=== PATIENT | female | born 1965 | race African-American/Black ===

== ENCOUNTER 2018-08-23 14:11 | Inpatient (IN) ==
[2018-08-23] MEDS ORDERED: Sod Chloride 0.9% Inj 1,000 ML IV.SIG SCH ×2 (14:45→17:30)
--- NOTE | 2018-08-23 15:04 | ED ---
HPI General Chief Complaint: Abdominal Pain Stated Complaint: Abd Pain Complaint Time Seen by Provider: 08/23/18 14:36 Source: patient Mode of arrival: ambulatory Limitations: no limitations History of Present Illness HPI narrative: Patient is a 52-year-old female presenting to the emergency department for evaluation of abdominal pain. Patient states it started 2 months ago, she states for the last 2 days it got worse and she has not had a bowel movement in 2 weeks. She states she usually has a bowel movement every time she drinks milk. She denies any nausea, vomiting, fever, chills, dysuria. Patient reports that the pain feels like her muscles in her stomach are ripping open. Pain is constant, worse with palpation. She reports her pain is a 10 out of 10. MD complaint: Reports abdominal pain Onset (ago): day(s) (2) Pain Consistency: constant Location: Reports diffuse Severity: moderate Quality: Reports fullness Radiation: Reports none Migration to: Reports no migration Relieving factors: nothing Exacerbating factors: nothing Associated symptoms: Reports denies other symptoms Related Data Previous Rx's Medication Instructions Recorded ciprofloxacin HCl [Cipro] 500 mg PO Q12H #10 tab 08/23/18 Allergies Allergy/AdvReac Type Severity Reaction Status Date / Time No Known Allergies Allergy Verified 08/23/18 14:32 Review of Systems ROS: all other systems reviewed are negative [facility] Medical History Medical History Inguinal hernia (Acute) Patient denies medical problems (Acute) Surgical History Surgical History H/O tubal ligation (Acute) Social History Social History Substance History: No History of Abuse Second Hand Smoke Exposure: Yes Smoking Status: Current some day smoker Tobacco Type: Cigarettes How Often Do You Have a Drink Containing Alcohol: Never Recent Travel in [facility] within the Last 8 Weeks: No Recent Out of Country Travel within the Last 8 Weeks: No Immunization History Tetanus Immunization: Unsure Exam Narrative Exam Narrative: GENERAL: Thin, well-developed, alert -[place] female. Presenting in no acute distress. SKIN: Focused skin assessment warm/dry. HEAD: Atraumatic. Normocephalic. EYES: Pupils equal and round. No scleral icterus. No injection or drainage. ENT: No nasal bleeding or discharge. Mucous membranes pink and moist. NECK: Trachea midline. No JVD. CARDIOVASCULAR: Regular rate and rhythm. No murmur appreciated. RESPIRATORY: No accessory muscle use. Clear to auscultation. Breath sounds equal bilaterally. GASTROINTESTINAL: Abdomen firm, tender diffusely, nondistended. Hepatic and splenic margins not palpable. Positive bowel sounds. MUSCULOSKELETAL: No obvious deformities. No clubbing. No cyanosis. No edema. NEUROLOGICAL: Awake and alert. No obvious cranial nerve deficits. Motor grossly within normal limits. Normal speech. PSYCHIATRIC: Appropriate mood and affect; insight and judgment normal. Course Initial Documented Vital Signs Temperature 98.7 F 08/23/18 14:15 Pulse Rate 87 08/23/18 14:15 Respiratory Rate 16 08/23/18 14:15 Blood Pressure 132/77 08/23/18 14:15 Pulse Oximetry 100 08/23/18 14:15 Last Documented Vital Signs Temperature 98.7 F 08/23/18 14:15 Pulse Rate 87 08/23/18 14:15 Respiratory Rate 16 08/23/18 14:15 Blood Pressure 132/77 08/23/18 14:15 Pulse Oximetry 100 08/23/18 14:15 Medical Decision Making YAZMIN Attestation YAZMIN supervised visit: Yes Attestation: I, Dr. Rosado, have reviewed the advance practice practitioner's documentation and am in agreement, met with the patient face to face, made the diagnosis, and the medical decision making was done by me. *My assessment and Findings: Patient seen and evaluated with nurse practitioner , please see nurse practitioner notes for further details. Here because of abdominal pains, grossly tender to palpation in the abdomen. Abdomen however is nondistended, scaphoid, and patient has not no vomiting episodes in the ER. Lab work and CAT scan indicates underlying UTI with possible underlying pyelonephritis. No other acute intra-abdominal processes were identified. Planning to release with treatment for pyelonephritis and discomfort. Follow- up with primary care doctor. Return for worsening in symptoms as needed. MDM Narrative Medical decision making narrative: Patient presented for evaluation of abdominal pain. Labs and imaging ordered and pending. Patient's vital signs are stable, family is at bedside. UA consistent with a UTI. Ct of the abd/pelvis shows possible pyelonephritis on the right, as well as enteritis. Pt was started on cipro IV x 1. K+ 3.0 she was given KCL orally for replacement. CBC shows an anemia, pt states she has a history of this and eats ice. Pt is to be discharged home with follow up at the [facility]. She was encouraged to return to the ED for any new or worsening symptoms. Medical Screen Exam Complete: Yes Emergency Medical Condition: Yes Differential Diagnosis Differential Diagnosis: Constipation versus obstruction versus metabolic abnormality versus colitis versus other Medical Records Medical records reviewed: Yes I reviewed the patient's medical records. Lab Data Lab results reviewed: Yes I reviewed the patient's lab results. Result diagrams: 08/23/18 14:30 08/23/18 14:30 Lab Results 08/23/18 08/23/18 08/23/18 Range/Units 14:30 14:30 14:30 WBC 9.4 (4.0-11.0) th/mm3 RBC 3.52 L (4.00-5.30) mil/mm3 Hgb 9.1 L (11.6-15.3) gm/dL Hct 27.3 L (35.0-46.0) % MCV 77.5 L (80.0-100.0) fL MCH 25.7 L (27.0-34.0) pg MCHC 33.2 (32.0-36.0) % RDW 17.4 H (11.6-17.2) % Plt Count 368 (150-450) th/mm3 MPV 7.6 (7.0-11.0) fL Neut % (Auto) 76.3 H (16.0-70.0) % Lymph % (Auto) 12.6 (9.0-44.0) % [place] % (Auto) 10.7 H (0.0-8.0) % Eos % (Auto) 0.1 (0.0-4.0) % Baso % (Auto) 0.3 (0.0-2.0) % Neut # (Auto) 7.2 (1.8-7.7) th/mm3 Lymph # (Auto) 1.2 (1.0-4.8) th/mm3 [place] # (Auto) 1.0 H (0.0-0.9) th/mm3 Eos # (Auto) 0.0 (0.0-0.4) th/mm3 Baso # (Auto) 0.0 (0.0-0.2) th/mm3 WBC Differential . Differential Comment Auto diff final Sodium 137 (136-145) meq/L Potassium 3.0 L (3.5-5.1) meq/L Chloride 103 (98-107) meq/L Carbon Dioxide 25.7 (21.0-32.0) meq/L Anion Gap 8 (5-15) meq/L BUN 19 H (7-18) mg/dL Creatinine 0.86 (0.50-1.00) mg/dL Estimated GFR 84 L (>89) mL/min Random Glucose 78 (74-106) mg/dL Calcium 8.6 (8.5-10.1) mg/dL Magnesium 2.2 (1.5-2.5) mg/dL Total Bilirubin 0.4 (0.2-1.0) mg/dL AST 11 L (15-37) U/L ALT 12 (10-53) U/L Alkaline Phosphatase 82 (45-117) U/L Total Protein 8.2 (6.4-8.2) g/dL Albumin 3.4 (3.4-5.0) g/dL Lipase 50 L (73-393) U/L TSH 0.983 Cancelled (0.358-3.740) uIU/mL Free T4 1.27 Cancelled (0.76-1.46) ng/dL Urine Color (Yellw/Straw) Urine Clarity (Clear) Urine pH (5.0-8.5) Ur Specific [place] (1.002-1.035) Urine Protein (Neg-Trace) mg/dL Urine Glucose (UA) (Negative) mg/dL Urine Ketones (Negative) mg/dL Urine Occult Blood (Negative) Urine Nitrate (Negative) Urine Bilirubin (Negative) Urine Urobilinogen (Less than 2) mg/dL Ur Leukocyte Esterase (Negative) Urine RBC (0-3) /hpf Urine WBC (0-5) /hpf Urine WBC Clumps (None) Ur Squamous Epith Cells (0-5) /hpf Urine Bacteria (None) /hpf Urine Mucus (Occasional) /lpf Micro UA Comment Ur Microscopic Review Urine Culture Comments 08/23/18 Range/Units 14:30 WBC (4.0-11.0) th/mm3 RBC (4.00-5.30) mil/mm3 Hgb (11.6-15.3) gm/dL Hct (35.0-46.0) % MCV (80.0-100.0) fL MCH (27.0-34.0) pg MCHC (32.0-36.0) % RDW (11.6-17.2) % Plt Count (150-450) th/mm3 MPV (7.0-11.0) fL Neut % (Auto) (16.0-70.0) % Lymph % (Auto) (9.0-44.0) % [place] % (Auto) (0.0-8.0) % Eos % (Auto) (0.0-4.0) % Baso % (Auto) (0.0-2.0) % Neut # (Auto) (1.8-7.7) th/mm3 Lymph # (Auto) (1.0-4.8) th/mm3 [place] # (Auto) (0.0-0.9) th/mm3 Eos # (Auto) (0.0-0.4) th/mm3 Baso # (Auto) (0.0-0.2) th/mm3 WBC Differential Differential Comment Sodium (136-145) meq/L Potassium (3.5-5.1) meq/L Chloride (98-107) meq/L Carbon Dioxide (21.0-32.0) meq/L Anion Gap (5-15) meq/L BUN (7-18) mg/dL Creatinine (0.50-1.00) mg/dL Estimated GFR (>89) mL/min Random Glucose (74-106) mg/dL Calcium (8.5-10.1) mg/dL Magnesium (1.5-2.5) mg/dL Total Bilirubin (0.2-1.0) mg/dL AST (15-37) U/L ALT (10-53) U/L Alkaline Phosphatase (45-117) U/L Total Protein (6.4-8.2) g/dL Albumin (3.4-5.0) g/dL Lipase (73-393) U/L TSH (0.358-3.740) uIU/mL Free T4 (0.76-1.46) ng/dL Urine Color Yellow (Yellw/Straw) Urine Clarity Cloudy H (Clear) Urine pH 6.0 (5.0-8.5) Ur Specific [place] 1.016 (1.002-1.035) Urine Protein 30 H (Neg-Trace) mg/dL Urine Glucose (UA) Negative (Negative) mg/dL Urine Ketones 20 (Negative) mg/dL Urine Occult Blood Small H (Negative) Urine Nitrate Positive H (Negative) Urine Bilirubin Negative (Negative) Urine Urobilinogen 4 or greater (Less than 2) mg/dL Ur Leukocyte Esterase Moderate H (Negative) Urine RBC 3 (0-3) /hpf Urine WBC 67 H (0-5) /hpf Urine WBC Clumps Occasional H (None) Ur Squamous Epith Cells 1 (0-5) /hpf Urine Bacteria Many H (None) /hpf Urine Mucus Few H (Occasional) /lpf Micro UA Comment Culture indicated Ur Microscopic Review Not Reportable Urine Culture Comments Culture indicated Imaging Data Attestation: I personally reviewed and interpreted this imaging study as follows : Radiologist's impression: Abdomen/Pelvis CT 08/23/18 14:45 CONCLUSION: 1. Scattered areas of decreased perfusion of the right kidney suggesting possible acute pyelonephritis on the right. There is mild hydronephrosis on the right also. No definite obstructing calcified ureteral calculus is noted on the right. Mild perinephric streakiness is noted on the right. 2. Evidence of several loops of small bowel demonstrating wall thickening suggesting acute enteritis. Clinical correlation is recommended. 3. 7 mm left hepatic lobe cyst. 4. Tiny umbilical hernia. Discharge Plan Discharge Disposition Patient Disposition: 01 Discharge Home Discharge Condition Condition: Good Discharge Order Discharge Orders: Discharge Order (Routine); Ordered 08/23/18 Ordered By: Dominique Paz Discharge Details Diagnosis: Enteritis, Pyelonephritis, Anemia Physicians Team ED Provider: Shayy Rosado ED Midlevel Provider: Dominique Paz Primary Care Provider: Primary Care Oksana Mora Rxs /Orders / Referrals /Forms Prescriptions: New ciprofloxacin HCl [Cipro] 500 mg tablet 500 mg PO Q12H Qty: 10 RF: 0 Referrals: [facility] [Outside] - 3 Days Discharge Instructions Patient Printed Instructions: Gastroenteritis (ED), Kidney Infection (ED) Additional Instructions: Follow up for routine healthcare at the [facility] Complete antibiotics as directed Return to the ED for any new or worsening symtpoms Increase fluid intake Status ED Status: With Doctor
[2018-08-23 15:12] LABS: Baso % (Auto) 0.3 % (0.0-2.0); Eos % (Auto) 0.1 % (0.0-4.0); Hematocrit 27.3 % (35.0-46.0); Hemoglobin 9.1 gm/dL (11.6-15.3); Lymph # (Auto) 1.2 th/mm3 (1.0-4.8); Lymph % (Auto) 12.6 % (9.0-44.0); Mean Corpuscular HGB Conc 33.2 % (32.0-36.0); Mean Corpuscular Hemoglobin 25.7 pg (27.0-34.0); Mean Corpuscular Volume 77.5 fL (80.0-100.0); Mean Platelet Volume 7.6 fL (7.0-11.0); Mono % (Auto) 10.7 % (0.0-8.0); Neut # (Auto) 7.2 th/mm3 (1.8-7.7); Neut % (Auto) 76.3 % (16.0-70.0); Platelet Count 368 th/mm3 (150-450); Red Blood Count 3.52 mil/mm3 (4.00-5.30); Red Cell Distribution Width 17.4 % (11.6-17.2); White Blood Count 9.4 th/mm3 (4.0-11.0)
[2018-08-23 15:18] LABS: Bacteria,Urine Many /hpf; Bilirubin,Urine Negative (Negative); Clarity,Urine Cloudy (Clear); Color,Urine Yellow (Yellw/Straw); Glucose,Urine (UA) Negative (Negative); Leukocyte Esterase,Urine Moderate (Negative); Mucus,Urine Few /lpf (Occasional); Nitrite,Urine Positive (Negative); Specific Gravity,Urine 1.016 (1.002-1.035); Squamous Epithelial Cell,Urine 1 /hpf (0-5); Urobilinogen,Urine 4 or Greater mg/dL (Less than 2)
[2018-08-23 15:44] LABS: Alanine Aminotransferase 12 U/L (10-53); Albumin 3.4 g/dL (3.4-5.0); Anion Gap 8 meq/L (5-15); Aspartate Aminotransferase 11 U/L (15-37); Blood Urea Nitrogen 19 mg/dL (7-18); Calcium 8.6 mg/dL (8.5-10.1); Carbon Dioxide 25.7 meq/L (21.0-32.0); Chloride 103 meq/L (98-107); Glomerular Filtration Rate 84 mL/min (>89); Glucose,Random 78 mg/dL (74-106); Lipase 50 U/L (73-393); Magnesium 2.2 mg/dL (1.5-2.5); Sodium 137 meq/L (136-145)
[2018-08-23 15:53] LABS: Alkaline Phosphatase 82 U/L (45-117); Free T4 (Free Thyroxine) 1.27 ng/dL (0.76-1.46); Thyroid Stimulating Hormone 0.983 uIU/mL (0.358-3.740); Total Protein 8.2 g/dL (6.4-8.2)
--- NOTE | 2018-08-23 16:29 | CT ---
EXAM DATE: 08/23/2018 3:16 PM EDT AGE/SEX: 52 years / Female INDICATIONS: Left lower quadrant pain and constipation. CLINICAL DATA: This is the patient's initial encounter. Patient reports that signs and symptoms have been present for 2 weeks and indicates a pain score of 10/10. MEDICAL/SURGICAL HISTORY: . Inguinal hernia. Tubal ligation. ORAL CONTRAST: No oral contrast ingested. RADIATION DOSE: 6.64 CTDI (mGy) COMPARISON: None. TECHNIQUE: Multiple contiguous axial images were obtained through the abdomen and pelvis following b olus infusion of 80 ml Omnipaque 350 (iohexol) nonionic water-soluble contrast as a single exam dos e. No oral contrast ingested. Using automated exposure control and adjustment of the mA and/or kV ac cording to patient size, radiation dose was kept as low as reasonably achievable to obtain optimal di agnostic quality images. DICOM format image data is available electronically for review and comparis on. FINDINGS: Lower Lungs: The visualized lower lungs are clear. Liver: There is a 7 mm cyst within the left lobe of the liver medially. There is no dilation of the b iliary tree. Spleen: Homogeneous density without enlargement. Pancreas: Unremarkable without mass or calcification. Kidneys: There are scattered areas of decreased perfusion of the right kidney suggesting possible ac horace pyelonephritis on the right. There is mild hydronephrosis on the right also. No definite obstruct ing calcified ureteral calculus is noted on the right. Mild perinephric streakiness is noted on the r ight. The left kidney is unremarkable. Adrenal Glands: Unremarkable. Aorta: The aorta and proximal iliac vessels are grossly unremarkable without aneurysmal dilation. Bowel/Mesentery: There is evidence of several loops of small bowel demonstrating wall thickening sug gesting acute enteritis. Clinical correlation is recommended. Abdominal Wall: Tiny umbilical hernia is noted. Retroperitoneum: No evidence of adenopathy in the retrocrural, para-aortic, or deep pelvic regions. Bladder: Contours are smooth. Reproductive Organs: No abnormal masses or calcifications seen. Inguinal: The inguinal region is unremarkable without evidence of adenopathy. Bony Structures: Unremarkable. CONCLUSION: 1. Scattered areas of decreased perfusion of the right kidney suggesting possible acute pyelonephrit is on the right. There is mild hydronephrosis on the right also. No definite obstructing calcified ur eteral calculus is noted on the right. Mild perinephric streakiness is noted on the right. 2. Evidence of several loops of small bowel demonstrating wall thickening suggesting acute enteritis . Clinical correlation is recommended. 3. 7 mm left hepatic lobe cyst. 4. Tiny umbilical hernia. Electronically signed by: Matt Sandhu MD 08/23/2018 4:28 PM EDT
[2018-08-23] MEDS ORDERED: Ciprofloxacin 400 MG/200 ML 400 MG/200 ML PIGGYBACK IV.SIG ONE (16:39)
--- NOTE | 2018-08-23 19:17 | P.HPFP ---
Addendum entered and electronically signed by Marlen Yoo MD, R2 08/23/18 22 :59: ROS: Patient is post-menopausal. Denies vaginal discharge/bleeding, recent sexual activity, hx of STDs,dysuria. Denies vision changes. . Minimal SOB, denies increased thirst/hunger, numbness, tingling, or headache. Endorses fatigue, states she often feels cold. Denies cough, muscle weakness, and leg edema. Original Note: History of Present Illness Primary Care Physician: No Primary Care Physician Chief Complaint: abdominal pain, vomiting History of Present Illness: 52 y/o F w/hx of anemia presenting w/abdominal pain, constipation, and vomiting. States she has been having epigastric abdominal pain and vomiting for the last 2 days. Has been severe. Pain is 10/10, ripping pain when it occurs. Pain is constant and worse with palpation. Had been taking Aleve for the pain, which she states was helping at the beginning. Did not see a doctor for this problem. Pain was on her lower left side and radiated to the back. Pain feels spasmodic. Walking has been difficult and has not been able to sleep. Called [facility] tonight to come to hospital. Hasn't had a bowel movement in two weeks. Just had a bowel movement in the ED after potassium pills. No hard balls or incontinence. Abdominal pain feels better after bowel movement. CT done in the ED showed pyleonephritis, given cipro IV x1 and was ordered to follow up with PCP, given oral abx and about to get discharged. However, she soon developed tachycardia and a fever of 101.8 (t max) shortly before leaving. Started shaking uncontrollably, felt like she was freezing. Getting two boluses in the ED. Over the past 2 months, has had a change in appetite.Has lost weight down to 118 , usual weight has been 130. Has been having night sweats in the last two weeks. Hasn't been on bike in two weeks due to pain. Surg hx: hernia repair 1984 tubal ligation 1994 Fam hx: Mom: HTN Dad: age 80, colon cancer Social Hx: Smokes tobacco 4 years Smokes marijuana every once in a while Drinks every once in a while - Diagnosis (1) Sepsis (2) Pyelonephritis (3) Hypokalemia (4) Enteritis (5) Anemia (6) Constipation (7) Nutrition, metabolism, and development symptoms (8) DVT prophylaxis PMFSH - History History Provided By: Patient - Medical History Medical History: Medical History (Last Reviewed 08/23/18 @ 15:01 by SAJAN Bonner) Inguinal hernia Patient denies medical problems - Surgical History Surgical History: Surgical History (Last Reviewed 08/23/18 @ 15:01 by SAJAN Bonner) H/O tubal ligation - Tobacco History Second Hand Smoke Exposure: Yes Tobacco Use In Past 30 Days: Yes Smoking Status: Current some day smoker (Smokes one cigarrete q4days) Tobacco Type: Cigarettes - Alcohol History How Often Do You Have a Drink Containing Alcohol: Never - Substance Use History Substance History: No History of Abuse - Travel History Recent Travel in the [place] Within the Last 8 Weeks: No Recent Travel Out of the Country Within the Last 8 Weeks: No - Immunization History Tetanus Immunization: Unsure Medications and Allergies Active Medications: Active Medications Sodium Chloride (Ns Inj) 1,000 mls @ 0 mls/hr IV.SIG BOLUS ODETTE Last Infusion: 08/23/18 16:26 Dose: Infused Sodium Chloride (Ns Inj) 1,000 mls @ 0 mls/hr IV.SIG BOLUS ODETTE Last Infusion: 08/23/18 18:46 Dose: Infused Sodium Chloride (Ns Flush) 2 ml IV.FLUSH PRN PRN PRN Reason: FLUSH AFTER USING IV ACCESS Allergies Allergy/AdvReac Type Severity Reaction Status Date / Time No Known Allergies Allergy Verified 08/23/18 14:32 Exam Vital signs: Vital Signs 08/23/18 14:15 08/23/18 17:00 08/23/18 18:15 Temperature 98.7 F 100.8 F H 101.8 F H Pulse Rate 87 108 H 114 H Respiratory Rate 16 24 24 Blood Pressure 132/77 110/78 108/68 Pulse Oximetry 100 100 100 Intake & Output 08/23/18 08/23/18 08/24/18 06:59 18:59 06:59 Intake Total 2300 / 2300 Balance 2300 / 2300 Weight 49.895 kg Intake: IV 2300 / 2300 Ofirmev Inj 1,000 mg In 100 ml 100 / 100 @ 400 mls/hr IV.SIG ONCE ONE Rx #:[id number] Cipro 400 MG/200 ML Inj 400 mg 200 / 200 In 200 ml @ 200 mls/hr IV.SIG ONCE ONE Rx#:[id number] NS Inj 1,000 ML @ Wide Open IV. 1999 SIG BOLUS ODETTE Rx#:[id number] Narrative: GENERAL: This is a pleasant, thin, Black lady who laying in bed appearing uncomfortable. SKIN: Warm and dry. HEAD: Atraumatic. Normocephalic. EYES: Pupils equal and round. No scleral icterus. No injection or drainage. ENT: No nasal bleeding or discharge. Mucous membranes pink and moist. NECK: Trachea midline. CARDIOVASCULAR: Regular rate and rhythm. RESPIRATORY: No accessory muscle use. Clear to auscultation. GASTROINTESTINAL: Abdomen tender to palpation w/guarding. No organomegaly noted. MUSCULOSKELETAL: Extremities without clubbing, cyanosis, or edema. NEUROLOGICAL: Awake and alert. No obvious cranial nerve deficits. Motor grossly within normal limits. Normal speech. PSYCHIATRIC: Appropriate mood and affect; insight and judgment normal. Results - Labs Result diagrams: 08/23/18 14:30 08/23/18 14:30 Abnormal lab results 08/23/18 08/23/18 08/23/18 Range/Units 14:30 14:30 14:30 RBC 3.52 L (4.00-5.30) mil/mm3 Hgb 9.1 L (11.6-15.3) gm/dL Hct 27.3 L (35.0-46.0) % MCV 77.5 L (80.0-100.0) fL MCH 25.7 L (27.0-34.0) pg RDW 17.4 H (11.6-17.2) % Neut % (Auto) 76.3 H (16.0-70.0) % [place] % (Auto) 10.7 H (0.0-8.0) % [place] # (Auto) 1.0 H (0.0-0.9) th/mm3 Potassium 3.0 L (3.5-5.1) meq/L BUN 19 H (7-18) mg/dL Estimated GFR 84 L (>89) mL/min AST 11 L (15-37) U/L Lipase 50 L (73-393) U/L Urine Clarity Cloudy H (Clear) Urine Protein 30 H (Neg-Trace) mg/dL Urine Occult Blood Small H (Negative) Urine Nitrate Positive H (Negative) Ur Leukocyte Esterase Moderate H (Negative) Urine WBC 67 H (0-5) /hpf Urine WBC Clumps Occasional H (None) Urine Bacteria Many H (None) /hpf Urine Mucus Few H (Occasional) /lpf Short CBC 08/23/18 Range/Units 14:30 WBC 9.4 (4.0-11.0) th/mm3 Hgb 9.1 L (11.6-15.3) gm/dL Hct 27.3 L (35.0-46.0) % Plt Count 368 (150-450) th/mm3 BMP 08/23/18 14:30 Sodium 137 Potassium 3.0 L Chloride 103 Carbon Dioxide 25.7 BUN 19 H Creatinine 0.86 Calcium 8.6 Liver Function 08/23/18 Range/Units 14:30 Total Bilirubin 0.4 (0.2-1.0) mg/dL AST 11 L (15-37) U/L ALT 12 (10-53) U/L Alkaline Phosphatase 82 (45-117) U/L Albumin 3.4 (3.4-5.0) g/dL Urine 08/23/18 Range/Units 14:30 Urine Color Yellow (Yellw/Straw) Urine Clarity Cloudy H (Clear) Urine pH 6.0 (5.0-8.5) Ur Specific Bryan 1.016 (1.002-1.035) Urine Protein 30 H (Neg-Trace) mg/dL Urine Glucose (UA) Negative (Negative) mg/dL - Imaging Impressions Abdomen/Pelvis CT 08/23/18 14:45 CONCLUSION: 1. Scattered areas of decreased perfusion of the right kidney suggesting possible acute pyelonephritis on the right. There is mild hydronephrosis on the right also. No definite obstructing calcified ureteral calculus is noted on the right. Mild perinephric streakiness is noted on the right. 2. Evidence of several loops of small bowel demonstrating wall thickening suggesting acute enteritis. Clinical correlation is recommended. 3. 7 mm left hepatic lobe cyst. 4. Tiny umbilical hernia. Caprini VTE Risk Assessment Caprini VTE Risk Assessment: No/Low Risk (score <= 1) Caprini Risk Assessment Model: Point Value = 1 Point Value = 2 Point Value = 3 Point Value = 5 Age 41-60 Minor surgery BMI > 25 kg/m2 Swollen legs Varicose veins or History of unexplained or recurrent spontaneous Oral contraceptives or hormone replacement Sepsis (< 1 month) Serious lung disease, including pneumonia (< 1 month) Abnormal pulmonary function Acute myocardial infarction Congestive heart failure (< 1 month) History of inflammatory bowel disease Medical patient at bed rest Age 61-74 Arthroscopic surgery Major open surgery (> 45 min) Laparoscopic surgery (> 45 min) Malignancy Confined to bed (> 72 hours) Immobilizing plaster cast Central venous access Age >= 75 History of VTE Family history of VTE Factor V Leiden Prothrombin [id number] Lupus anticoagulant Anticardiolipin antibodies Elevated serum homocysteine Heparin-induced thrombocytopenia Other congenital or acquired thrombophilia Stroke (< 1 month) Elective arthroplasty Hip, pelvis, or leg fracture Acute spinal cord injury (< 1 month) Prophylaxis Regimen: Total Risk Factor Score Risk Level Prophylaxis Regimen 0-1 Low Early ambulation 2 Moderate Order ONE of the following: *Sequential Compression Device (SCD) *Heparin 5000 units SQ BID 3-4 Higher Order ONE of the following medications: *Heparin 5000 units SQ TID *Enoxaparin/Lovenox 40 mg SQ daily (WT < 150 kg, CrCl > 30 mL/min) *Enoxaparin/Lovenox 30 mg SQ daily (WT < 150 kg, CrCl > 10-29 mL/min) *Enoxaparin/Lovenox 30 mg SQ BID (WT < 150 kg, CrCl > 30 mL/min) AND/OR *Sequential Compression Device (SCD) 5 or more Highest Order ONE of the following medications: *Heparin 5000 units SQ TID (Preferred with Epidurals) *Enoxaparin/Lovenox 40 mg SQ daily (WT < 150 kg, CrCl > 30 mL/min) *Enoxaparin/Lovenox 30 mg SQ daily (WT < 150 kg, CrCl > 10-29 mL/min) *Enoxaparin/Lovenox 30 mg SQ BID (WT < 150 kg, CrCl > 30 mL/min) AND *Sequential Compression Device (SCD) Assessment and Plan - Assessment (1) Sepsis Code(s): A41.9 - Sepsis, unspecified organism Status: Acute Plan: 2/2 to pyelonephritis as suggested per clinical exam, CT, and U/A No end organ damage noted per labs S/p NS 1L bolus x2 and cipro 400 mg x1 Start IVF @ maintenance No risk factors for infection with MDR resistant organisms noted at this time. Start Rocephin 1g daily Lactic acid-sepsis protocol Ibuprofen PRN for fever of >100.4 Blood cx x1 ordered Urine cx pending (2) Pyelonephritis Code(s): N12 - Tubulo-interstitial nephritis, not specified as acute or chronic Status: Acute Plan: See plan above (3) Hypokalemia Code(s): E87.6 - Hypokalemia Status: Acute Plan: K+ 3.0 on admission. Supplemented x1. F/u CMP (4) Enteritis Code(s): K52.9 - Noninfective gastroenteritis and colitis, unspecified Status : Acute Plan: Diff: cancer v sepsis v bacterial Eval for improvement in the AM Peripheral blood smear ordered (5) Anemia Code(s): D64.9 - Anemia, unspecified Status: Acute Plan: Microcytic Diff: iron deficiency v thalassemia CBC daily Check iron panel, consider supplementation (6) Constipation Code(s): K59.00 - Constipation, unspecified Status: Acute Plan: Bedside hemoccult deferred due to significant discomfort and abdominal pain. - Hemoccult of the stool ordered - Stool softeners scheduled - Laxatives PRN - Has had BM x1 in the ED. Consider administration of PEG if the above do not work (7) Nutrition, metabolism, and development symptoms Code(s): R63.8 - Other symptoms and signs concerning food and fluid intake Status: Acute Plan: Fluids: maintenance Electrolytes: as needed, check BMP daily Nutrition: Regular diet (8) DVT prophylaxis Status: Acute Plan: Encourage ambulation - Assessment and Plan Discussed w/ED physician (1) Sepsis Qualifiers: Sepsis type: sepsis due to unspecified organism Qualified Code(s): A41.9 - Sepsis, unspecified organism (5) Anemia Qualifiers: Anemia type: unspecified type Qualified Code(s): D64.9 - Anemia, unspecified
[2018-08-23] MEDS ORDERED: Bisacodyl 10 MG Supp RECTAL PRN (19:46)
[2018-08-23] MEDS ORDERED: Vancomycin Consult Pharmacy OTHER PRN (19:54)
[2018-08-23] MEDS ORDERED: Naloxone Inj 0.4 MG/ML Vial IV.PUSH PRN (19:59)
[2018-08-23 20:07] LABS: Amphetamine Screen,Urine Neg (Neg); Barbiturate Screen,Urine Neg (Neg); Cannabinoid Screen,Urine Pos (Neg); Cocaine Screen,Urine Pos (Neg)
[2018-08-23 20:13] LABS: Opiate Screen,Urine Neg (Neg)
[2018-08-23] MEDS ORDERED: Vancomycin Inj 750 MG in Sodium Chlor 0.9% Inj 250 ML IV.SIG SCH (21:00)
[2018-08-23] MEDS: Senna/Docusate Sodium 8.6/50 MG Tablet PO SCH (21:14)
[2018-08-23] MEDS ORDERED: Ibuprofen 400 MG Tablet PO PRN (21:23)
[2018-08-23] MEDS: Sod Chloride 0.9% Inj 1,000 ML IV.CONT SCH (22:38)
[2018-08-24 09:11] LABS: Baso % (Auto) 0.4 % (0.0-2.0); Eos # (Auto) 0.1 th/mm3 (0.0-0.4); Eos % (Auto) 0.7 % (0.0-4.0); Hematocrit 23.2 % (35.0-46.0); Hemoglobin 7.8 gm/dL (11.6-15.3); Lymph # (Auto) 1.7 th/mm3 (1.0-4.8); Lymph % (Auto) 21.3 % (9.0-44.0); Mean Corpuscular HGB Conc 33.8 % (32.0-36.0); Mean Corpuscular Hemoglobin 26.4 pg (27.0-34.0); Mean Corpuscular Volume 78.1 fL (80.0-100.0); Mean Platelet Volume 7.7 fL (7.0-11.0); Mono # (Auto) 0.7 th/mm3 (0.0-0.9); Mono % (Auto) 8.8 % (0.0-8.0); Neut # (Auto) 5.5 th/mm3 (1.8-7.7); Neut % (Auto) 68.8 % (16.0-70.0); Platelet Count 312 th/mm3 (150-450); Red Blood Count 2.96 mil/mm3 (4.00-5.30); Red Cell Distribution Width 17.4 % (11.6-17.2); White Blood Count 8.1 th/mm3 (4.0-11.0)
[2018-08-24] MEDS: Senna/Docusate Sodium 8.6/50 MG Tablet PO SCH ×2 (09:30→20:20)
[2018-08-24 09:44] LABS: % Iron Saturation 3.9 % (20-50); Carbon Dioxide 22.7 meq/L (21.0-32.0); Potassium 3.4 meq/L (3.5-5.1)
--- NOTE | 2018-08-24 10:46 | P.HPFP ---
History of Present Illness Primary Care Physician: No Primary Care Physician Chief Complaint: abdominal pain, vomiting History of Present Illness: Patient seen with medical support assistant team during rounds this morning. She states that she feels much better this morning and that she was able to eat breakfast without issue. She continues to have some epigastric abdominal pain as well as some right sided flank pain, however this has improved significantly since admission. She feels that she is still constipated, however denies pain from this. Further discussion with patient shows that she has been taking Aleve several times a day for at least the last month and a half for this abdominal pain. This morning, she denies fevers but endorses sweating profusely overnight which is common for her, she denies nausea or vomiting, she denies chest pain or palpitations. In summary, this is a 52-year-old female presenting to the emergency department with abdominal pain and vomiting. The abdominal pain has been going on for approximately the last 2 months, however over the last 2 days became significantly worse associated with vomiting and so she came into the emergency department. She has been taking Aleve for this abdominal pain which was helping originally, however she gets no relief from her Aleve at this time. She denies any hematemesis, she denies any melena or hematochezia, she denies any chest pain. In the emergency department, CT scan was done showing pyelonephritis for which she was started on ciprofloxacin. She became febrile and had continued abdominal pain, so she was admitted for further treatment. - Diagnosis (1) Sepsis (2) Pyelonephritis (3) Hypokalemia (4) Enteritis (5) Anemia (6) Constipation (7) Substance abuse (8) Nutrition, metabolism, and development symptoms (9) DVT prophylaxis Inpatient Certification: I certify that the inpatient services were ordered in accordance with Medicare regulations governing the order. This includes certification that hospital inpatient services are reasonable and necessary and in the case of services not specified as inpatient-only under 42 CFR 419.22(n), that they are appropriately provided as inpatient services in accordance to with the 2-midnight benchmark under 43 CFR 412.3(e) Estimated Total Length of Stay (Days): 3 Plans for Post Hospital Care: Home [facility] - History History Provided By: Patient - Medical History Medical History: Medical History (Last Reviewed 08/23/18 @ 15:01 by SAJAN Bonner) Inguinal hernia Patient denies medical problems - Surgical History Surgical History: Surgical History (Last Reviewed 08/23/18 @ 15:01 by SAJAN Bonner) H/O tubal ligation - Tobacco History Second Hand Smoke Exposure: Yes Tobacco Use In Past 30 Days: Yes Smoking Status: Current every day smoker Tobacco Type: Cigarettes - Alcohol History How Often Do You Have a Drink Containing Alcohol: Monthly or less - Substance Use History Substance History: Active Abuse - Substance Use Type Crack/Cocaine Status: Active Marijuana Status: Active - Travel History Recent Travel in the [place] Within the Last 8 Weeks: No Recent Travel Out of the Country Within the Last 8 Weeks: No - Immunization History Tetanus Immunization: Unsure Hx Influenza Vaccine This Season: No Medications and Allergies Active Medications: Active Medications Al Hydroxide/Mg Hydroxide (Milk Of Magnesia Liq) 30 ml PO Q12H PRN PRN Reason: Mild Constipation Bisacodyl (Dulcolax Supp) 10 mg RECTAL DAILY PRN PRN Reason: SEVERE CONSITIPATION Acetaminophen (Ofirmev Inj) 1,000 mg in 100 mls @ 400 mls/hr IV.SIG Q6H [facility] Stop: 08/24/18 14:14 Last Admin: 08/24/18 09:30 Dose: 100 mls/hr Ceftriaxone Sodium 1,000 mg/ (Sodium Chloride) 100 mls @ 200 mls/hr IV.SIG Q24H [facility] Last Infusion: 08/23/18 22:03 Dose: Infused Ibuprofen (Motrin) 400 mg PO Q6H PRN PRN Reason: FEVER > 100.4 F Lactulose (Lactulose Liq) 30 ml PO DAILY PRN PRN Reason: SEVERE CONSITIPATION Naloxone HCl (Narcan Inj) 0.4 mg IV.PUSH UNSCH PRN PRN Reason: SEE LABEL COMMENTS Ondansetron HCl (Zofran Inj) 4 mg IV.PUSH Q6H PRN PRN Reason: NAUSEA OR VOMITING Pantoprazole Sodium (Protonix) 40 mg PO DAILY [facility] Polyethylene Glycol (Miralax) 17 gm PO ONCE ONE Stop: 08/24/18 11:01 Senna/Docusate Sodium (Huong-Colace) 1 tab PO BID [facility] Last Admin: 08/24/18 09:30 Dose: 1 tab Sennosides (Senokot) 17.2 mg PO Q12H PRN PRN Reason: Moderate Constipation Sodium Chloride (Ns Flush) 2 ml IV.FLUSH PRN PRN PRN Reason: FLUSH AFTER USING IV ACCESS Allergies Allergy/AdvReac Type Severity Reaction Status Date / Time No Known Allergies Allergy Verified 08/23/18 14:32 Exam Vital signs: Vital Signs 08/23/18 14:15 08/23/18 17:00 08/23/18 18:15 Temperature 98.7 F 100.8 F H 101.8 F H Pulse Rate 87 108 H 114 H Respiratory Rate 16 24 24 Blood Pressure 132/77 110/78 108/68 Pulse Oximetry 100 100 100 08/23/18 20:25 08/24/18 00:00 08/24/18 08:00 Temperature 99.6 F 98.3 F 98.3 F Pulse Rate 102 H 95 H 84 Respiratory Rate 20 18 17 Blood Pressure 124/86 108/59 L 116/70 Pulse Oximetry 100 100 99 Intake & Output 08/23/18 08/24/18 08/24/18 18:59 06:59 18:59 Intake Total 2300 / 2300 780 / 780 Balance 2300 / 2300 780 / 780 Weight 49.895 kg 43.3 kg Intake: IV 2300 / 2300 300 / 300 Ofirmev Inj 1,000 mg In 100 ml 100 / 100 200 / 200 @ 400 mls/hr IV.SIG Q6H [facility] Rx# :[id number] Cipro 400 MG/200 ML Inj 400 mg 200 / 200 In 200 ml @ 200 mls/hr IV.SIG ONCE ONE Rx#:[id number] NS Inj 1,000 ML @ Wide Open IV. 1999 SIG BOLUS ODETTE Rx#:[id number] Rocephin Inj 1,000 MG In NS Inj 100 / 100 100 ML @ 200 mls/hr IV.SIG Q24H [facility] Rx#:[id number] Oral 480 / 480 Other: # Voids 2 Weight On Admission 43.3 kg Narrative: CONSTITUTIONAL/GEN: Thin, -[place]ov[place] female lying in bed in no obvious distress. LUNGS: clear A-P, respiratory effort is normal. CARDIOVASCULAR: RR without murmur or gallop. No significant edema. GI/ABD: Diffusely tender to palpation with moderate guarding in the epigastric region. Positive bowel sounds : Positive for right-sided CVA tenderness SKIN: color normal, no rashes noted. MUSC: Extremities are normal in appearance without clubbing, cyanosis, or edema PSYCH/MENTAL STATUS: Alert and oriented x 3. Results - Labs Result diagrams: 08/24/18 07:18 08/24/18 07:13 Abnormal lab results 08/23/18 08/23/18 08/23/18 Range/Units 14:30 14:30 14:30 RBC 3.52 L (4.00-5.30) mil/mm3 Hgb 9.1 L (11.6-15.3) gm/dL Hct 27.3 L (35.0-46.0) % MCV 77.5 L (80.0-100.0) fL MCH 25.7 L (27.0-34.0) pg RDW 17.4 H (11.6-17.2) % Neut % (Auto) 76.3 H (16.0-70.0) % Kaufman % (Auto) 10.7 H (0.0-8.0) % [place]aufman # (Auto) 1.0 H (0.0-0.9) th/mm3 Potassium 3.0 L (3.5-5.1) meq/L Chloride (98-107) meq/L BUN 19 H (7-18) mg/dL Estimated GFR 84 L (>89) mL/min Random Glucose (74-106) mg/dL Calcium (8.5-10.1) mg/dL Iron (50-170) mcg/dL % Saturation (20-50) % AST 11 L (15-37) U/L Lipase 50 L (73-393) U/L Urine Clarity Cloudy H (Clear) Urine Protein 30 H (Neg-Trace) mg/dL Urine Occult Blood Small H (Negative) Urine Nitrate Positive H (Negative) Ur Leukocyte Esterase Moderate H (Negative) Urine WBC 67 H (0-5) /hpf Urine WBC Clumps Occasional H (None) Urine Bacteria Many H (None) /hpf Urine Mucus Few H (Occasional) /lpf Urine Cocaine Screen (Neg) U Cannabinoids Screen (Neg) 08/23/18 08/24/18 08/24/18 Range/Units 14:30 07:13 07:18 RBC 2.96 L (4.00-5.30) mil/mm3 Hgb 7.8 L (11.6-15.3) gm/dL Hct 23.2 L (35.0-46.0) % MCV 78.1 L (80.0-100.0) fL MCH 26.4 L (27.0-34.0) pg RDW 17.4 H (11.6-17.2) % Neut % (Auto) (16.0-70.0) % Kaufman % (Auto) 8.8 H (0.0-8.0) % [place]aufman # (Auto) (0.0-0.9) th/mm3 Potassium 3.4 L (3.5-5.1) meq/L Chloride 113 H D (98-107) meq/L BUN (7-18) mg/dL Estimated GFR 87 L (>89) mL/min Random Glucose 110 H (74-106) mg/dL Calcium 8.0 L (8.5-10.1) mg/dL Iron 10 L (50-170) mcg/dL % Saturation 3.9 L (20-50) % AST (15-37) U/L Lipase (73-393) U/L Urine Clarity (Clear) Urine Protein (Neg-Trace) mg/dL Urine Occult Blood (Negative) Urine Nitrate (Negative) Ur Leukocyte Esterase (Negative) Urine WBC (0-5) /hpf Urine WBC Clumps (None) Urine Bacteria (None) /hpf Urine Mucus (Occasional) /lpf Urine Cocaine Screen Pos H (Neg) U Cannabinoids Screen Pos H (Neg) Short CBC 08/23/18 08/24/18 Range/Units 14:30 07:18 WBC 9.4 8.1 (4.0-11.0) th/mm3 Hgb 9.1 L 7.8 L (11.6-15.3) gm/dL Hct 27.3 L 23.2 L (35.0-46.0) % Plt Count 368 312 (150-450) th/mm3 BMP 08/23/18 08/24/18 14:30 07:13 Sodium 137 143 Potassium 3.0 L 3.4 L Chloride 103 113 H D Carbon Dioxide 25.7 22.7 BUN 19 H 9 Creatinine 0.86 0.83 Calcium 8.6 8.0 L Liver Function 08/23/18 Range/Units 14:30 Total Bilirubin 0.4 (0.2-1.0) mg/dL AST 11 L (15-37) U/L ALT 12 (10-53) U/L Alkaline Phosphatase 82 (45-117) U/L Albumin 3.4 (3.4-5.0) g/dL Urine 08/23/18 Range/Units 14:30 Urine Color Yellow (Yellw/Straw) Urine Clarity Cloudy H (Clear) Urine pH 6.0 (5.0-8.5) Ur Specific [place] 1.016 (1.002-1.035) Urine Protein 30 H (Neg-Trace) mg/dL Urine Glucose (UA) Negative (Negative) mg/dL - Imaging Impressions Abdomen/Pelvis CT 08/23/18 14:45 CONCLUSION: 1. Scattered areas of decreased perfusion of the right kidney suggesting possible acute pyelonephritis on the right. There is mild hydronephrosis on the right also. No definite obstructing calcified ureteral calculus is noted on the right. Mild perinephric streakiness is noted on the right. 2. Evidence of several loops of small bowel demonstrating wall thickening suggesting acute enteritis. Clinical correlation is recommended. 3. 7 mm left hepatic lobe cyst. 4. Tiny umbilical hernia. Caprini VTE Risk Assessment Caprini VTE Risk Assessment: No/Low Risk (score <= 1) Caprini Risk Assessment Model: Point Value = 1 Point Value = 2 Point Value = 3 Point Value = 5 Age 41-60 Minor surgery BMI > 25 kg/m2 Swollen legs Varicose veins or History of unexplained or recurrent spontaneous Oral contraceptives or hormone replacement Sepsis (< 1 month) Serious lung disease, including pneumonia (< 1 month) Abnormal pulmonary function Acute myocardial infarction Congestive heart failure (< 1 month) History of inflammatory bowel disease Medical patient at bed rest Age 61-74 Arthroscopic surgery Major open surgery (> 45 min) Laparoscopic surgery (> 45 min) Malignancy Confined to bed (> 72 hours) Immobilizing plaster cast Central venous access Age >= 75 History of VTE Family history of VTE Factor V Leiden Prothrombin [id number] Lupus anticoagulant Anticardiolipin antibodies Elevated serum homocysteine Heparin-induced thrombocytopenia Other congenital or acquired thrombophilia Stroke (< 1 month) Elective arthroplasty Hip, pelvis, or leg fracture Acute spinal cord injury (< 1 month) Prophylaxis Regimen: Total Risk Factor Score Risk Level Prophylaxis Regimen 0-1 Low Early ambulation 2 Moderate Order ONE of the following: *Sequential Compression Device (SCD) *Heparin 5000 units SQ BID 3-4 Higher Order ONE of the following medications: *Heparin 5000 units SQ TID *Enoxaparin/Lovenox 40 mg SQ daily (WT < 150 kg, CrCl > 30 mL/min) *Enoxaparin/Lovenox 30 mg SQ daily (WT < 150 kg, CrCl > 10-29 mL/min) *Enoxaparin/Lovenox 30 mg SQ BID (WT < 150 kg, CrCl > 30 mL/min) AND/OR *Sequential Compression Device (SCD) 5 or more Highest Order ONE of the following medications: *Heparin 5000 units SQ TID (Preferred with Epidurals) *Enoxaparin/Lovenox 40 mg SQ daily (WT < 150 kg, CrCl > 30 mL/min) *Enoxaparin/Lovenox 30 mg SQ daily (WT < 150 kg, CrCl > 10-29 mL/min) *Enoxaparin/Lovenox 30 mg SQ BID (WT < 150 kg, CrCl > 30 mL/min) AND *Sequential Compression Device (SCD) Assessment and Plan - Assessment (1) Sepsis Code(s): A41.9 - Sepsis, unspecified organism Status: Acute Plan: Patient meets sepsis criteria with tachycardia, febrile, and source of infection with pyelonephritis IV antibiotics: Rocephin 1 g IV every 24 hours -Received ciprofloxacin 400 mg IV x1 in the emergency department Urine culture pending Blood culture pending Lactic acid within normal limits at 1.1 (2) Pyelonephritis Code(s): N12 - Tubulo-interstitial nephritis, not specified as acute or chronic Status: Acute Plan: See plan above (3) Hypokalemia Code(s): E87.6 - Hypokalemia Status: Acute Plan: K+ 3.0 on admission. Supplemented x1. F/u CMP (4) Enteritis Code(s): K52.9 - Noninfective gastroenteritis and colitis, unspecified Status : Acute Plan: Enteritis seen on CT scan Likely due to viral gastroenteritis versus heavy NSAID use Avoid NSAIDs at this time (5) Anemia Code(s): D64.9 - Anemia, unspecified Status: Acute Plan: Hemoglobin 9.1 on arrival, decreased to 7.8 today Monitor with daily labs and transfuse as needed for hemoglobin less than 7 Iron studies ordered and pending (6) Constipation Code(s): K59.00 - Constipation, unspecified Status: Acute Plan: Bedside hemoccult deferred due to significant discomfort and abdominal pain. - Hemoccult of the stool ordered - Stool softeners scheduled - Laxatives PRN (7) Substance abuse Code(s): F19.10 - Other psychoactive substance abuse, uncomplicated Status: Acute Plan: Tox screen positive for cocaine and cannabinoids Recommend cessation (8) Nutrition, metabolism, and development symptoms Code(s): R63.8 - Other symptoms and signs concerning food and fluid intake Status: Acute Plan: Fluids: maintenance Electrolytes: as needed, check BMP daily Nutrition: Regular diet (9) DVT prophylaxis Status: Acute Plan: Encourage ambulation H&P: Quality - VTE Deep Vein Thrombosis/Pulmonary Embolism Present on Admission: No (1) Sepsis Qualifiers: Sepsis type: sepsis due to unspecified organism Qualified Code(s): A41.9 - Sepsis, unspecified organism (5) Anemia Qualifiers: Anemia type: unspecified type Qualified Code(s): D64.9 - Anemia, unspecified
[2018-08-24] MEDS ORDERED: Polyethylene Glycol 3350 17 GM Packet PO ONE (11:00)
[2018-08-24] MEDS: Sod Chloride 0.9% Inj 1,000 ML IV.CONT SCH (18:57)
--- NOTE | 2018-08-24 22:19 | ECG ---
Date Performed: 08/23/2018 Time Performed: 20:14:16 PTAGE: 52 years EKG: SINUS TACHYCARDIA ABNORMAL RHYTHM ECG PREVIOUS TRACING : 04/19/1994 19.33 Since the previous tracing, no significant change noted DOCTOR: Roderick Swain Interpretating Date/Time 08/24/2018 22:18:33
[2018-08-25 06:00] LABS: Baso % (Auto) 0.4 % (0.0-2.0); Eos # (Auto) 0.1 th/mm3 (0.0-0.4); Eos % (Auto) 1.6 % (0.0-4.0); Hematocrit 26.7 % (35.0-46.0); Hemoglobin 8.5 gm/dL (11.6-15.3); Lymph # (Auto) 1.6 th/mm3 (1.0-4.8); Lymph % (Auto) 29.1 % (9.0-44.0); Mean Corpuscular HGB Conc 31.8 % (32.0-36.0); Mean Corpuscular Volume 78.8 fL (80.0-100.0); Mean Platelet Volume 7.4 fL (7.0-11.0); Mono # (Auto) 0.4 th/mm3 (0.0-0.9); Mono % (Auto) 7.3 % (0.0-8.0); Neut # (Auto) 3.5 th/mm3 (1.8-7.7); Neut % (Auto) 61.6 % (16.0-70.0); Platelet Count 333 th/mm3 (150-450); Red Blood Count 3.39 mil/mm3 (4.00-5.30); Red Cell Distribution Width 17.3 % (11.6-17.2); White Blood Count 5.6 th/mm3 (4.0-11.0)
[2018-08-25 06:11] LABS: Anion Gap 8 meq/L (5-15); Blood Urea Nitrogen 8 mg/dL (7-18); Calcium 8.5 mg/dL (8.5-10.1); Carbon Dioxide 22.5 meq/L (21.0-32.0); Chloride 110 meq/L (98-107); Glomerular Filtration Rate Greater Than 89 mL/min (>89); Glucose,Random 84 mg/dL (74-106); Potassium 3.6 meq/L (3.5-5.1); Sodium 140 meq/L (136-145)
[2018-08-25] MEDS ORDERED: PEG 3350/E-Lyte Soln 4000 ML Bottle PO ONE (09:00)
[2018-08-25] MEDS: Senna/Docusate Sodium 8.6/50 MG Tablet PO SCH ×2 (09:46→20:03)
--- NOTE | 2018-08-25 11:05 | P.PNFP ---
Subjective Interval history: Vitals stable overnight. Improvement in pain today more than yesterday. Had a bowel movement this morning, but states that it took 15 minutes and was hard in texture. No problems with appetite or ambulation, denies fever/chills, chest pain/SOB, nausea. <Marlen Yoo - 08/25/18 11:05> Results - Labs Result diagrams: 08/25/18 05:30 08/25/18 05:30 <Abhay Rey - 08/25/18 22:10> Abnormal lab results 08/25/18 08/25/18 Range/Units 05:30 05:30 RBC 3.39 L (4.00-5.30) mil/mm3 Hgb 8.5 L (11.6-15.3) gm/dL Hct 26.7 L (35.0-46.0) % MCV 78.8 L (80.0-100.0) fL MCH 25.0 L (27.0-34.0) pg MCHC 31.8 L (32.0-36.0) % RDW 17.3 H (11.6-17.2) % Chloride 110 H (98-107) meq/L Short CBC 08/25/18 Range/Units 05:30 WBC 5.6 (4.0-11.0) th/mm3 Hgb 8.5 L (11.6-15.3) gm/dL Hct 26.7 L (35.0-46.0) % Plt Count 333 (150-450) th/mm3 BMP 08/25/18 05:30 Sodium 140 Potassium 3.6 Chloride 110 H Carbon Dioxide 22.5 BUN 8 Creatinine 0.67 Calcium 8.5 <Abhay Rey - 08/25/18 22:10> Abnormal lab results 08/23/18 08/25/18 08/25/18 Range/Units 14:30 05:30 05:30 RBC 3.39 L (4.00-5.30) mil/mm3 Hgb 8.5 L (11.6-15.3) gm/dL Hct 26.7 L (35.0-46.0) % MCV 78.8 L (80.0-100.0) fL MCH 25.0 L (27.0-34.0) pg MCHC 31.8 L (32.0-36.0) % RDW 17.3 H (11.6-17.2) % Chloride 110 H (98-107) meq/L Urine Clarity Cloudy H (Clear) Urine Protein 30 H (Neg-Trace) mg/dL Urine Occult Blood Small H (Negative) Urine Nitrate Positive H (Negative) Ur Leukocyte Esterase Moderate H (Negative) Urine WBC 67 H (0-5) /hpf Urine WBC Clumps Occasional H (None) Urine Bacteria Many H (None) /hpf Urine Mucus Few H (Occasional) /lpf Short CBC 08/25/18 Range/Units 05:30 WBC 5.6 (4.0-11.0) th/mm3 Hgb 8.5 L (11.6-15.3) gm/dL Hct 26.7 L (35.0-46.0) % Plt Count 333 (150-450) th/mm3 BMP 08/25/18 05:30 Sodium 140 Potassium 3.6 Chloride 110 H Carbon Dioxide 22.5 BUN 8 Creatinine 0.67 Calcium 8.5 Urine 08/23/18 Range/Units 14:30 Urine Color Yellow (Yellw/Straw) Urine Clarity Cloudy H (Clear) Urine pH 6.0 (5.0-8.5) Ur Specific [place] 1.016 (1.002-1.035) Urine Protein 30 H (Neg-Trace) mg/dL Urine Glucose (UA) Negative (Negative) mg/dL <Marlen Yoo N - 08/25/18 11:05> Physical Exam Vital signs: Vital Signs 08/25/18 00:00 08/25/18 08:00 08/25/18 12:00 Temperature 98.4 F 97.7 F 97.9 F Pulse Rate 79 76 64 Respiratory Rate 16 20 16 Blood Pressure 128/62 123/75 132/83 Pulse Oximetry 100 100 99 08/25/18 16:00 08/25/18 20:00 Temperature 98.4 F 98.3 F Pulse Rate 75 22 L Respiratory Rate 17 17 Blood Pressure 119/79 138/75 Pulse Oximetry 100 96 Intake & Output 08/25/18 08/25/18 08/26/18 06:59 18:59 06:59 Intake Total 580 / 580 942 / 942 Balance 580 / 580 942 / 942 Weight 43.3 kg Intake: IV 100 / 100 Rocephin Inj 1,000 MG In NS Inj 100 / 100 100 ML @ 200 mls/hr IV.SIG Q24H [facility] Rx#:[id number] Oral 480 / 480 942 / 942 Other: # Voids 3 8 Date of Last Bowel Movement 08/25/18 08/25/18 # Bowel Movements 2 <Abhay Rey - 08/25/18 22:10> Vital Signs 08/24/18 12:00 08/24/18 16:00 08/24/18 20:00 Temperature 98.1 F 98.4 F 98.7 F Pulse Rate 70 77 69 Respiratory Rate 17 17 17 Blood Pressure 124/75 135/77 135/88 Pulse Oximetry 100 100 100 08/25/18 00:00 08/25/18 08:00 Temperature 98.4 F 97.7 F Pulse Rate 79 76 Respiratory Rate 16 20 Blood Pressure 128/62 123/75 Pulse Oximetry 100 100 Intake & Output 08/24/18 08/25/18 08/25/18 18:59 06:59 18:59 Intake Total 1200 / 1200 580 / 580 Balance 1200 / 1200 580 / 580 Weight 43.3 kg Intake: IV 1200 / 1200 100 / 100 NS Inj 1,000 ML @ 90 mls/hr IV. 1000 / 1000 CONT .Q11H7M [facility] Rx#:[id number] Ofirmev Inj 1,000 mg In 100 ml 200 / 200 @ 400 mls/hr IV.SIG Q6H [facility] Rx# :[id number] Rocephin Inj 1,000 MG In NS Inj 100 / 100 100 ML @ 200 mls/hr IV.SIG Q24H [facility] Rx#:[id number] Oral 480 / 480 Other: # Voids 3 <Marlen Yoo N - 08/25/18 11:05> Narrative: CONSTITUTIONAL/GEN: Thin, -[place] female lying in bed in no distress. LUNGS: clear A-P, respiratory effort is normal. CARDIOVASCULAR: RR without murmur or gallop. GI/ABD: Slightly tender to palpation at the lower quadrants. Positive bowel sounds : No CVA tenderness. SKIN: color normal, no rashes noted. MUSC: Extremities are normal in appearance without clubbing, cyanosis, or edema PSYCH/MENTAL STATUS: Alert and oriented x 3. <Marlen Yoo N - 08/25/18 11:05> Assessment and Plan - Assessment (1) Pyelonephritis Code(s): N12 - Tubulo-interstitial nephritis, not specified as acute or chronic Status: Acute (2) Enteritis Code(s): K52.9 - Noninfective gastroenteritis and colitis, unspecified Status : Acute (3) Anemia Code(s): D64.9 - Anemia, unspecified Status: Acute (4) Constipation Code(s): K59.00 - Constipation, unspecified Status: Acute (5) Substance abuse Code(s): F19.10 - Other psychoactive substance abuse, uncomplicated Status: Acute (6) Sepsis Code(s): A41.9 - Sepsis, unspecified organism Status: Acute (7) Hypokalemia Code(s): E87.6 - Hypokalemia Status: Acute (8) Nutrition, metabolism, and development symptoms Code(s): R63.8 - Other symptoms and signs concerning food and fluid intake Status: Acute (9) DVT prophylaxis Status: Acute <Abhay Rey - 08/25/18 22:10> (1) Pyelonephritis Code(s): N12 - Tubulo-interstitial nephritis, not specified as acute or chronic Status: Acute Plan: IV antibiotics: Rocephin 1 g IV every 24 hours Urine culture + for E.coli, sensitive to Bactrim and Cipro Blood culture no growth in 1 day (2) Enteritis Code(s): K52.9 - Noninfective gastroenteritis and colitis, unspecified Status : Acute Plan: Enteritis seen on CT scan Likely due to viral gastroenteritis versus heavy NSAID use Avoid NSAIDs at this time (3) Anemia Code(s): D64.9 - Anemia, unspecified Status: Acute Plan: Monitor CBC, likely 2/2 to iron deficiency Will provide supplementation after constipation resolves (4) Constipation Code(s): K59.00 - Constipation, unspecified Status: Acute Plan: Likely causing abdominal pain at this time - Hemoccult of the stool ordered pending - Scheduled stool softeners - Minimal improvement w/Miralax - Order Golytely for today (5) Substance abuse Code(s): F19.10 - Other psychoactive substance abuse, uncomplicated Status: Acute Plan: Tox screen positive for cocaine and cannabinoids Recommend cessation (6) Sepsis Code(s): A41.9 - Sepsis, unspecified organism Status: Acute Plan: Resolved. (7) Hypokalemia Code(s): E87.6 - Hypokalemia Status: Acute Plan: Resolved. (8) Nutrition, metabolism, and development symptoms Code(s): R63.8 - Other symptoms and signs concerning food and fluid intake Status: Acute Plan: Fluids: maintenance Electrolytes: as needed, check BMP daily Nutrition: Regular diet GI prophy: Protonix (9) DVT prophylaxis Status: Acute Plan: Encourage ambulation <Marlen Yoo - 08/25/18 10:59> - Assessment and Plan Discussed w/ED physician <Marlen Yoo - 08/25/18 11:05> - Attending Attestation e discussed with resident physicians. I have read the above note and agree with the assessment and plan as discussed with me. I was involved in all medical decision making for this patient. Abhay Rey MD <Abhay Rey - 08/25/18 22:10> <Marlen Yoo N - Last Filed: 08/25/18 10:59> (3) Anemia Qualifiers: Anemia type: unspecified type Qualified Code(s): D64.9 - Anemia, unspecified (6) Sepsis Qualifiers: Sepsis type: sepsis due to unspecified organism Qualified Code(s): A41.9 - Sepsis, unspecified organism <Abhay Rey - Last Filed: 08/25/18 22:10> (3) Anemia Qualifiers: Anemia type: unspecified type Qualified Code(s): D64.9 - Anemia, unspecified (6) Sepsis Qualifiers: Sepsis type: sepsis due to unspecified organism Qualified Code(s): A41.9 - Sepsis, unspecified organism <Marlen Yoo N - Last Filed: 08/25/18 10:59> (3) Anemia Qualifiers: Anemia type: unspecified type Qualified Code(s): D64.9 - Anemia, unspecified (6) Sepsis Qualifiers: Sepsis type: sepsis due to unspecified organism Qualified Code(s): A41.9 - Sepsis, unspecified organism <Abhay Rey - Last Filed: 08/25/18 22:10> (3) Anemia Qualifiers: Anemia type: unspecified type Qualified Code(s): D64.9 - Anemia, unspecified (6) Sepsis Qualifiers: Sepsis type: sepsis due to unspecified organism Qualified Code(s): A41.9 - Sepsis, unspecified organism
--- NOTE | 2018-08-25 16:34 | P.DIET ---
Nutritional Evaluation Type of nutrition evaluation: initial Nutrition consult regarding: Diet Evaluation Nutrition screening: Weight Loss > 10 lbs Subjective Subjective Comments: Pt currently tolerating diet and finished 100% of breakfast today (08/25). Objective - Diagnosis Abd pain complaint - Objective Body Mass Index: 14.95 % IBW: 73 (IBW = 130lb) Body Weight Used for Calculations: IBW Energy Needs - Lower Range (kCal/kg): 25 Energy Needs - Upper Range (kCal/kg): 30 Lower Limit kCal/kg (kCals): 1,477 Upper Limit kCal/kg (kCals): 1,773 Lower Limit Protein Factor (Grams per Kg): 1.1 Upper Limit Protein Factor (Grams per Kg): 1.3 Lower Protein Needs (Protein): 65 Upper Protein Needs (Protein): 77 Fluid Factor (ml/kg): 1 Estimated Fluid Needs (ml): 1,773 Dietitian Reviewed in Medical Record: Current diet, Curent medications, Intake & Output, Labs, Medical history Oral Diet Intake Amount: Excellent 90%+ Speech Therapy Recommendations: No Objective Comments: PMH: H/O tubal ligation, inguinal hernia Meds: Milk of mag, zofran, protonix, bactrim Assessment Assessment: Pt at nutritional risk r/t reported unintentional wt loss. Pt currently tolerating regular diet and consuming 100% of meals. Labs noted. Dietitian following. Recommendations: 1. Monitor for wt loss 2.Will assess pts nutritional needs for a PO supplement as appropriate 3. Dietitian following. Dietitian to Monitor: Lab values, Intake & Output, Weight change, PO Intake, Medical course
[2018-08-26 07:59] VITALS: O2SAT 100
[2018-08-26] MEDS ORDERED: Acetaminophen 325 MG Tablet PO PRN (08:39)
--- NOTE | 2018-08-26 08:39 | P.PNFP ---
Subjective Interval history: Patient seen and examined this morning. Patient complaining of increased abdominal pain since yesterday. She states that it feels like a "rock is stuck at the bottom of her stomach". She has passed one small, hard stool this morning around 4 am, after drink 3-4 cups of Golytely yesterday. She has been drinking fluids otherwise. Notes mild nausea and 2 episodes of vomiting, once after breakfast yesterday and once after dinner last night. She has been passing gas. Denies chest pain, shortness of breath, back pain, leg pain or swelling, fever, chills or dysuria. <Lillian Domingo - 08/26/18 08:39> Results - Labs Result diagrams: 08/26/18 07:41 08/26/18 07:41 <Abhay Rey - 08/26/18 19:57> Abnormal lab results 08/26/18 Range/Units 07:41 RBC 3.50 L (4.00-5.30) mil/mm3 Hgb 8.9 L (11.6-15.3) gm/dL Hct 26.6 L (35.0-46.0) % MCV 75.9 L (80.0-100.0) fL MCH 25.4 L (27.0-34.0) pg RDW 17.4 H (11.6-17.2) % Short CBC 08/26/18 Range/Units 07:41 WBC 4.9 (4.0-11.0) th/mm3 Hgb 8.9 L (11.6-15.3) gm/dL Hct 26.6 L (35.0-46.0) % Plt Count 410 (150-450) th/mm3 [facility] 08/26/18 07:41 Sodium 139 Potassium 3.8 Chloride 107 Carbon Dioxide 24.0 BUN 13 Creatinine 0.79 Calcium 8.5 <Abhay Rey - 08/26/18 19:57> Physical Exam Vital signs: Vital Signs 08/25/18 20:00 08/26/18 00:00 08/26/18 07:57 Temperature 98.3 F 97.9 F 98.2 F Pulse Rate 22 L 75 72 Respiratory Rate 17 17 16 Blood Pressure 138/75 126/80 120/75 Pulse Oximetry 96 99 100 08/26/18 12:49 Temperature 99.1 F Pulse Rate 74 Respiratory Rate 17 Blood Pressure 113/73 Pulse Oximetry 100 Intake & Output 08/26/18 08/26/18 08/27/18 06:59 18:59 06:59 Intake Total 600 / 600 Balance 600 / 600 Weight 43.5 kg Intake: Oral 600 / 600 Other: # Voids 5 Date of Last Bowel Movement 08/25/18 08/26/18 # Bowel Movements 1 <KrissyAbhay franco - 08/26/18 19:57> Vital Signs 08/25/18 12:00 08/25/18 16:00 08/25/18 20:00 Temperature 97.9 F 98.4 F 98.3 F Pulse Rate 64 75 22 L Respiratory Rate 16 17 17 Blood Pressure 132/83 119/79 138/75 Pulse Oximetry 99 100 96 08/26/18 00:00 08/26/18 07:57 Temperature 97.9 F 98.2 F Pulse Rate 75 72 Respiratory Rate 17 16 Blood Pressure 126/80 120/75 Pulse Oximetry 99 100 Intake & Output 08/25/18 08/26/18 08/26/18 18:59 06:59 18:59 Intake Total 942 / 942 600 / 600 Balance 942 / 942 600 / 600 Weight 43.5 kg Intake: Oral 942 / 942 600 / 600 Other: # Voids 8 5 Date of Last Bowel Movement 08/25/18 08/25/18 # Bowel Movements 2 1 <Lillian Domingo - 08/26/18 08:39> Narrative: CONSTITUTIONAL/GEN: Thin, -Prydeinig female lying in bed. LUNGS: CTAB without rales or ronchi. CARDIOVASCULAR: RR without murmur or gallop. GI/ABD: Moderately tender to palpation at the lower quadrants. Positive bowel sounds. : No CVA tenderness. SKIN: color normal, no rashes noted. MUSC: Extremities are normal in appearance without clubbing, cyanosis, or edema PSYCH/MENTAL STATUS: Alert and oriented x 3. <Lillian Domingo - 08/26/18 15:35> Assessment and Plan - Assessment (1) Pyelonephritis Code(s): N12 - Tubulo-interstitial nephritis, not specified as acute or chronic Status: Acute (2) Enteritis Code(s): K52.9 - Noninfective gastroenteritis and colitis, unspecified Status : Acute (3) Constipation Code(s): K59.00 - Constipation, unspecified Status: Acute (4) Anemia Code(s): D64.9 - Anemia, unspecified Status: Acute (5) Substance abuse Code(s): F19.10 - Other psychoactive substance abuse, uncomplicated Status: Acute (6) Sepsis Code(s): A41.9 - Sepsis, unspecified organism Status: Resolved (7) Hypokalemia Code(s): E87.6 - Hypokalemia Status: Resolved (8) Nutrition, metabolism, and development symptoms Code(s): R63.8 - Other symptoms and signs concerning food and fluid intake Status: Acute (9) DVT prophylaxis Status: Acute <Abhay Rey - 08/26/18 19:57> (1) Pyelonephritis Code(s): N12 - Tubulo-interstitial nephritis, not specified as acute or chronic Status: Acute Plan: IV antibiotics: Rocephin 1 g IV every 24 hours. Discontinued on 08/25 Urine culture + for E.coli, sensitive to Bactrim and Cipro. Changed to Bactrim p.o. on 08/25 Blood culture no growth in 1 day (2) Enteritis Code(s): K52.9 - Noninfective gastroenteritis and colitis, unspecified Status : Acute Plan: Enteritis seen on CT scan Likely due to viral gastroenteritis versus heavy NSAID use Avoid NSAIDs at this time (3) Constipation Code(s): K59.00 - Constipation, unspecified Status: Acute Plan: Likely causing abdominal pain at this time - Hemoccult of the stool ordered pending - Scheduled stool softeners - Minimal improvement w/Miralax, or GoLYTELY yesterday. - Ordered Fleet enema (4) Anemia Code(s): D64.9 - Anemia, unspecified Status: Acute Plan: Monitor CBC, likely 2/2 to iron deficiency Will provide supplementation after constipation resolves (5) Substance abuse Code(s): F19.10 - Other psychoactive substance abuse, uncomplicated Status: Acute Plan: Tox screen positive for cocaine and cannabinoids Recommend cessation (6) Sepsis Code(s): A41.9 - Sepsis, unspecified organism Status: Resolved Plan: Resolved. (7) Hypokalemia Code(s): E87.6 - Hypokalemia Status: Resolved Plan: Resolved. (8) Nutrition, metabolism, and development symptoms Code(s): R63.8 - Other symptoms and signs concerning food and fluid intake Status: Acute Plan: Fluids: maintenance Electrolytes: as needed, check BMP daily Nutrition: Regular diet GI prophy: Protonix (9) DVT prophylaxis Status: Acute Plan: Encourage ambulation <JannethcarleeLillian B - 08/26/18 15:35> - Assessment and Plan Dispo: Case management to provide patient information on [facility] regarding finding a PCP. Patient to be discharged on Bactrim. <Lillian Domingo - 08/26/18 15:35> - Attending Attestation Pt. examined and case discussed with resident physicians. I have read the above note and agree with the assessment and plan as discussed with me. I was involved in all medical decision making for this patient. Abhay Rey MD <Abhay Rey - 08/26/18 19:57> <JannethLillian bejarano - Last Filed: 08/26/18 15:35> (4) Anemia Qualifiers: Anemia type: unspecified type Qualified Code(s): D64.9 - Anemia, unspecified (6) Sepsis Qualifiers: Sepsis type: sepsis due to unspecified organism Qualified Code(s): A41.9 - Sepsis, unspecified organism <Abhay Rey - Last Filed: 08/26/18 19:57> (4) Anemia Qualifiers: Anemia type: unspecified type Qualified Code(s): D64.9 - Anemia, unspecified (6) Sepsis Qualifiers: Sepsis type: sepsis due to unspecified organism Qualified Code(s): A41.9 - Sepsis, unspecified organism <Lillian Domingo - Last Filed: 08/26/18 15:35> (4) Anemia Qualifiers: Anemia type: unspecified type Qualified Code(s): D64.9 - Anemia, unspecified (6) Sepsis Qualifiers: Sepsis type: sepsis due to unspecified organism Qualified Code(s): A41.9 - Sepsis, unspecified organism <Abhay Rey - Last Filed: 08/26/18 19:57> (4) Anemia Qualifiers: Anemia type: unspecified type Qualified Code(s): D64.9 - Anemia, unspecified (6) Sepsis Qualifiers: Sepsis type: sepsis due to unspecified organism Qualified Code(s): A41.9 - Sepsis, unspecified organism
[2018-08-26] MEDS: Senna/Docusate Sodium 8.6/50 MG Tablet PO SCH (08:43)
[2018-08-26 10:04] LABS: Baso # (Auto) 0.1 th/mm3 (0.0-0.2); Baso % (Auto) 1.1 % (0.0-2.0); Hematocrit 26.6 % (35.0-46.0); Hemoglobin 8.9 gm/dL (11.6-15.3); Lymph # (Auto) 1.8 th/mm3 (1.0-4.8); Lymph % (Auto) 37.7 % (9.0-44.0); Mean Corpuscular HGB Conc 33.4 % (32.0-36.0); Mean Corpuscular Hemoglobin 25.4 pg (27.0-34.0); Mean Corpuscular Volume 75.9 fL (80.0-100.0); Mean Platelet Volume 7.7 fL (7.0-11.0); Mono # (Auto) 0.3 th/mm3 (0.0-0.9); Mono % (Auto) 5.8 % (0.0-8.0); Neut # (Auto) 2.6 th/mm3 (1.8-7.7); Neut % (Auto) 54.4 % (16.0-70.0); Platelet Count 410 th/mm3 (150-450); Red Cell Distribution Width 17.4 % (11.6-17.2); White Blood Count 4.9 th/mm3 (4.0-11.0)
[2018-08-26 10:23] LABS: Anion Gap 8 meq/L (5-15); Blood Urea Nitrogen 13 mg/dL (7-18); Calcium 8.5 mg/dL (8.5-10.1); Chloride 107 meq/L (98-107); Glomerular Filtration Rate Greater Than 89 mL/min (>89); Glucose,Random 84 mg/dL (74-106); Potassium 3.8 meq/L (3.5-5.1); Sodium 139 meq/L (136-145)
[2018-08-26] MEDS ORDERED: Sod Phosphate/Sod Biphosphate (Adult) Enema 133 ML Bottle RECTAL ONE (12:00)
[2018-08-26 12:50] VITALS: BP 113/73; PULSE 74; RESP 17; TEMP 99.1
--- NOTE | 2018-08-27 19:04 | P.DS ---
Date of admission: 08/23/18 22:29 Primary care physician: No Primary Care Physician Brief History from admission: Patient seen with medical instructor team during rounds this morning. She states that she feels much better this morning and that she was able to eat breakfast without issue. She continues to have some epigastric abdominal pain as well as some right sided flank pain, however this has improved significantly since admission. She feels that she is still constipated, however denies pain from this. Further discussion with patient shows that she has been taking Aleve several times a day for at least the last month and a half for this abdominal pain. This morning, she denies fevers but endorses sweating profusely overnight which is common for her, she denies nausea or vomiting, she denies chest pain or palpitations. In summary, this is a 52-year-old female presenting to the emergency department with abdominal pain and vomiting. The abdominal pain has been going on for approximately the last 2 months, however over the last 2 days became significantly worse associated with vomiting and so she came into the emergency department. She has been taking Aleve for this abdominal pain which was helping originally, however she gets no relief from her Aleve at this time. She denies any hematemesis, she denies any melena or hematochezia, she denies any chest pain. In the emergency department, CT scan was done showing pyelonephritis for which she was started on ciprofloxacin. She became febrile and had continued abdominal pain, so she was admitted for further treatment. DS: Diagnosis - Discharge Diagnosis (1) Pyelonephritis Status: Acute (2) Enteritis Status: Acute (3) Constipation Status: Acute (4) Anemia Status: Acute (5) Substance abuse Status: Acute (6) Sepsis Status: Resolved (7) Hypokalemia Status: Resolved (8) Nutrition, metabolism, and development symptoms Status: Acute (9) DVT prophylaxis Status: Acute DS: Medications - Discharge Medications Prescriptions: sulfamethoxazole-trimethoprim 1 tab PO Q12HR 10 Days #20 tab DS: Summary Hospital Course: .This is a 52-year-old female with history of anemia and constipation admitted for sepsis secondary to pyelonephritis. Urinalysis was positive for nitrates, moderate leukocyte esterase and showed many bacteria, and CT abdomen/pelvis performed in the ED showed scattered areas of decreased perfusion in the right kidney suggesting possible acute pyelonephritis, without obvious ureteral stone. Patient was given 2 normal saline boluses and started on Cipro in the ED. Patient was started on Rocephin IV after being admitted, with good response. Blood cultures were negative and urine culture grew E. coli, which was sensitive to Bactrim. She was switched to Bactrim p.o. once sensitivities resulted. The day of discharge, patient was experienced increased, diffuse abdominal pain , likely associated with chronic constipation. Patient had been given GoLYTELY the day before without significant effect, however, on the day of discharge, patient was given a Fleet enema, which resulted in resolution of the abdominal pain after the passage of stool. Patient was discharged in stable condition with prescription for Bactrim p.o. times 10 days, for a total of 14 days of treatment, and instructions to follow- up with [facility] to establish with a PCP to follow-up chronic constipation and anemia. - Time Spent with Patient Total time spent providing and/or coordinating discharge services: Greater than 30 minutes - Quality: VTE Deep Vein Thrombosis/Pulmonary Embolism Present on Admission: No Results Procedures completed during hospitalization: none Labs on day of discharge: Preliminary micro results at discharge 08/23/18 19:40 Aerobic Blood Culture - Preliminary Blood - Peripheral No growth in 4 days Anaerobic Blood Culture - Preliminary No growth in 4 days - Impressions ITS Impressions Abdomen/Pelvis CT 08/23/18 14:45 CONCLUSION: 1. Scattered areas of decreased perfusion of the right kidney suggesting possible acute pyelonephritis on the right. There is mild hydronephrosis on the right also. No definite obstructing calcified ureteral calculus is noted on the right. Mild perinephric streakiness is noted on the right. 2. Evidence of several loops of small bowel demonstrating wall thickening suggesting acute enteritis. Clinical correlation is recommended. 3. 7 mm left hepatic lobe cyst. 4. Tiny umbilical hernia. Discharge Plan - Discharge Disposition Patient Disposition: W/Home Health Service - Discharge Condition Condition: Stable - Discharge Order Discharge Orders: Discharge Order (Routine); Ordered 08/26/18 Ordered By: Lillian Domingo - Discharge Details Anticipated Discharge Date: 08/26/18 Discharge Comment: Ok to D/C after receiving information about [facility]. - Physicians Team Primary Care Provider: Primary Care Deysii,No Attending Provider: Abhay Rey
== END 2018-08-26 16:37 | disposition home health service (06) ==
LOC: NEPE 14:11 → N07 22:29
PROVIDERS: ADMIT Family Medicine; ATTEND Family Medicine